=== PATIENT | female | born 1980 | race Two or more races ===

== ENCOUNTER 2018-11-26 03:16 | Emergency (ER) | payer MEDICAID, OTHER ==
[~2018-11-26] VITALS: Ht 162.6 cm; Wt 71.5 kg
[~2018-11-26 03:16] MED LIST: ALBU8.5H5 INH; DIAZ2TAB PO; FLUO20CA8 PO; FLUT16SP24 INH; LEVO50TA5 PO; METF500T17 PO
[2018-11-26 03:23] VITALS: BP 147/67
[2018-11-26] MEDS ORDERED: LORazepam 1MG TABLET ONE (03:56)
[2018-11-26] MEDS ORDERED: LORazepam 1MG TABLET PO ONE (04:00)
== END 2018-11-26 04:19 | disposition home or self-care (01) ==
LOC: ED 03:45
DX: H93.13 Tinnitus, bilateral (principal)
CPT/HCPCS: 99283